=== PATIENT | female | born 1995 | race Caucasian/White ===

== ENCOUNTER 2023-12-04 20:18 | Emergency (ER) | payer OTHER | END 2023-12-04 22:02 | disposition home or self-care (01) | LOC: JD.ED 20:18 | DX: S93.401A Sprain of unspecified ligament of right ankle, initial encounter (principal); Z91.018 Allergy to other foods; V18.0XXA Pedal cycle driver injured in noncollision transport accident in nontraffic accident, initial encounter | CPT/HCPCS: 73610-26-RT; 73610-RT; 99283 ==